=== PATIENT | female | born 1955 | race Caucasian/White ===

== ENCOUNTER 2017-12-25 08:19 | Inpatient (IN) | payer OTHER, SELFPAY ==
[2017-12-12 08:50] VITALS: BMI 33.3
[2017-12-25] VITALS (20 sets, daily range): BP systolic 107–164; BP diastolic 63–86; PULSE 66–91; RESP 8–21; TEMP 35.8–37.1; O2SAT 95–99; BMI 33.3
--- NOTE | 2017-12-25 | DI.RAD.S_ITS ---
PROCEDURE: XR LUMBAR SPINE 2-3V INDICATIONS: XLIF TECHNIQUE: 2 views of the lumbar spine were acquired. COMPARISON: [facility], CR, XR LUMBAR SPINE 2 OR 3 VIEWS, 06/04/2017, 11:44. [facility], MR, L-SPINE WITHOUT CONTRAST, 06/25/2017, 12:02. [facility], CR, XR LUMBAR SPINE 2 OR 3 VIEWS, 11/19/2017, 9:18. FINDINGS: 2 fluoroscopy images demonstrate discectomy and posterior fusion at L3-L4 and L4-L5. IMPRESSION: Discectomy and posterior fusion at L3-L4 and L4-L5. Dictated by: Iftikhar Gomez M.D. on 12/25/2017 at 16:16 Approved by: Iftikhar Gomez M.D. on 12/25/2017 at 16:18
[2017-12-25] MEDS: LACTATED RINGERS 1,000 ML 42 ML IV ×2 (09:14→13:27)
--- NOTE | 2017-12-25 09:53 | PM.PREOP ---
Pre-operative Note Interval Note Pre-op Check: Yes History & Physical Reviewed by Physician and Yes Exam Performed Changes: No
--- NOTE | 2017-12-25 10:00 | PM.OP.1 ---
Operative Date/Time/Diagnoses Date of procedure: 12/25/17 Time of procedure: 15:18 Pre-op diagnosis: lumbar stenosis with radiculopathy Lumbar spondylolisthesis Post-op diagnosis: same Procedure & Clinicians Procedure: L3-4 anterior fusion with cage L3-4 posterior fusion L4-5 TLIF (post/post innerbody fusion) with cage L3, L4, L5 screws Iliac crest bone graft L3-4, L4-5 laminectomy Use of microscope Placement of epidural catheter Same procedure as scheduled: Yes Indications: [age] year old female with intractable pain from stenosis. They had failed conservative management and requested operative intervention. Risks and benefits of surgery were discussed and appropriate consents were obtained. Surgeon: Rishi Slade Channel Development Director: Tanya Espinal Anesthesia Type: General Operative Notes Findings: None Closure Type: primary Specimen(s): none sent Implants & Drains: NuVasive XLIF cages and Reline screws Globus Rise cage Estimated Blood Loss (mL): 30 Procedure in detail: Patient was brought to the operating room and intubated on the table. Time-out was performed. They were then rolled over to the lateral decubitus position with the [id number]. The table was bent and they were taped down in the correct position. X-rays were taken to confirm a true AP and lateral. Preoperative antibiotics were given. The left flank was prepped and draped in standard sterile fashion. Using fluoroscopy, a 3 cm incision was made above the iliac crest. We bluntly dissected down with Metzenbaum scissors and split the 3 abdominal muscle layers. We dissected out the retroperitoneal space and using finger guidance, brought our 1st dilator down to the psoas muscle. Using neuromonitoring and fluoroscopy, we placed it through the psoas onto the L34 disc space in an anterior position and gradually pulled the dilator posteriorly along the disc space. We placed our guidewire and measured our depth for the retractor. We then dilated with the next 2 dilators and then placed our retractor over the dilators. Position was confirmed with fluoroscopy and the retractor was locked down to the bar. We opened up the retractor and checked with neuro monitoring. We then placed the tyree and again checked with neuro monitoring. The retractor was opened further and the ALL retractor was placed. An annulotomy was performed. We then performed a complete diskectomy with ring curette, pituitary, box osteotome. A Khoury was advanced across the disc space under fluoroscopy to release the lateral annulus on the opposite side. We then used sequentially larger trials and confirmed under fluoroscopy. An XLIF cage was packed with Osteocell bone graft and impacted into the L34 disc space with fluoroscopy for the anterior fusion at this level. The wound was irrigated. The retractor was closed down. The tyree was removed. We carefully removed the retractor with direct visualization to make sure there was no neurovascular or abdominal injury. Final x-rays were taken. The muscle fascia was closed, superficial tissue was closed. The skin was closed. Sterile dressing was placed. The patient was then rolled over on the well-padded prone position on the Nomi table. Using fluoroscopy for localization, a 6 cm incision was made to the left of the midline. We used Bovie to split the fascia. We then percutaneously placed Jamshidi needles down the left pedicles of L3, L4, L5 with fluoro and neuro monitoring. We changed out the guidewires. We then tapped and placed our screw shanks. The retractor was opened. The transverse processes were cleared in the gutter as well as along the lamina medially. We used the bur to prep the transverse processes. We then brought in the microscope. A laminectomy was performed at L4-5 and L3-4 with a bur and Kerrison rongeurs. We carefully depressed the dura to reach to the opposite side and decompress the entire central canal. We cleared out the neural foramen. In the end the ball probe could be placed cephalad and caudally across to the opposite side in the foramen and everything was opened. We then completed the facetectomy at L4-5. We carefully retracted the dura at L4-5 and exposed the disc. Bipolar was used for hemostasis. We performed an annulotomy and then used paddles, clarissa, pituitaries, and curettes to perform a complete diskectomy at L4-5. We placed Osteocell bone graft into the disc space and then placed our globus Rise cage. This was expanded under fluoroscopy. This completed the posterior innerbody portion of the L45 TLIF. We then placed the screw heads and then measured and placed a lexy and locked it down. The wound was copiously irrigated. A small stab incision was made over the PSIS and a Jamshidi needle was placed into the iliac crest and several mL of bone marrow was aspirated. This was mixed with our locally harvested bone graft as well as the remaining Osteocell and placed in the posterolateral gutter for posterior fusion at L3-4 and the posterior lateral portion of the L4-5 TLIF. An epidural catheter was primed with 4mL of 0.5% bupivacaine, 100 mcg fentanyl, 4 mg Duramorph, 1 mg Stadol. The dura was depressed under the cephalad lamina with a ball probe and the epidural catheter was gently advanced 6 cm cephalad. The fascia was then closed. The epidural was then injected without resistance. The catheter was pulled and we closed more over the fascia. Then using fluoroscopy, a 6 cm right-sided incision was made. We used Bovie split the fascia. We then percutaneously placed Jamshidi needles, guidewires, tapped, and then placed our pedicle screws into L3, L4, and L5. This was done with neuro monitoring and fluoro. We placed a lexy and locked it down. Final x-rays were taken. The wound was irrigated. The fascia was closed. Vancomycin powder was placed in the wounds. The superficial and skin were closed. Sterile dressing was placed. The patient was then rolled over, extubated, brought to the recovery room with no complications. Complications: none Condition: stable Disposition: PACU Plan for aftercare: Inpatient. Up with physical therapy.
[2017-12-25] MEDS: CEFAZOLIN 2 GM/100 ML FROZ.PIGGY IV ×3 (10:48→22:33)
--- NOTE | 2017-12-25 11:34 | SUR.OPER ---
Right lateral on padded OR table. Head on pillow, gel axillary roll, pillow to support left arm. Legs flexed, pillows between legs, gel pad under down leg and ankle. Multiple passes of 3 inch cloth tape across shoulder, hip, upper and lower legs to secure patient on OR table.
[2017-12-25] MEDS: BUPIVACAINE 0.5% (PF) 4 ML, MORPHINE-PF 4 MG, BUTORPHANOL 1 MG, fentaNYL 100 MCG INJ (12:35)
[2017-12-25] MEDS: THROMBIN (BOVINE) 5,000 UNIT VIAL 5000 UNIT TOP (12:39)
[2017-12-25] MEDS: SODIUM CHLORIDE 0.9% 1,000 ML, GENTAMICIN 80 MG IRR ×2 (12:40→12:57)
[2017-12-25] MEDS: VANCOMYCIN 1,000 MG VIAL 1000 MG TOP (14:45)
--- NOTE | 2017-12-25 15:55 | SUR.PHASEI ---
oxygen decreased to 2l/cannula
[2017-12-25] MEDS: HYDROMORPHONE 2 MG INJ 0.25 MG IV (16:05)
[2017-12-25] MEDS: LACTATED RINGERS 1,000 ML 125 ML IV (17:02)
--- NOTE | 2017-12-25 17:05 | PT.IPTN ---
Current Diagnoses Spondylolisthesis, lumbar region (12/25/17) Spinal stenosis, lumbar region with neurogenic claudication (12/25/17) Surgery Performed Operation Date: 12/25/17 10:45 Actual Procedures p L3-4,L4-5 Laminectomy w/Instru. Front and Back Fusion w/Bone Graft - Rishi Slade MD Physical Therapy Treatment Note M3 PT-IP Subjective Start: 12/25/17 17:02 Freq: NEEDED Status: Active Protocol: Document 12/25/17 17:02 ALFONSO (Rec: 12/25/17 17:05 EA [id number]) Subjective Physical Therapy Visit Type Type Patient Refusal Notes Nurse in-charged reports that patient just got into the floor ~ 1645 and feels not ready at this time due to bot fully awake. Patient to evaluate tomorrow a.m
--- NOTE | 2017-12-25 17:13 | PC.ADMIT ---
Addendum entered by Cari Saldana R.N. 12/25/17 22:49: Pt removed from oxygen, sustaining 98% on room air. Pt pleasant and makes needs known. will continue to monitor. Original Note: Addendum entered by Cari Saldana R.N. 12/25/17 21:53: Pt slept for a few hours, on and off. tolerating pain. no move nausea. ice pack to back. will continue to monitor. Original Note: Addendum entered by Cari Saldana R.N. 12/25/17 19:21: pt remains on 1L NC. pt ate too much she thinks, given meds and pt stated she felt nauseous. t did throw up about 5ml. clear, no pills seen, green from jello pt had just put in her mouth. Pt cooperative. Pt refuses pain medication. tolerable level 5/10 and pt states thats where she feels like she is. pt given zofran and this helped with nausea. Pt belongings and call light within reach. will continue to monitor pt for safety. taught IS use. encouraged to call if pain become intolerable, sooner rather than later. will continue to monitor. Original Note: Addendum entered by Cari Saldana R.N. 12/25/17 18:37: removed oxygen from pt, sustained 98%, upon checking pt 10 minutes later- pt oxygen 90% on room air, encouraged to take deep breaths. Pt put back on 1L oxygen, pt does not like it as she states it tickles her nose. Pt taught how to us IS and demonstration, pt able to teach back. Pt using. oxygen 95-99% on room air with IS use. will continue to monitor. Original Note: ADMISSION TO FLOOR- Pt arrived on floor at 1630. Pt easy to arouse. denies pain. tolerating Ice and water fine. will proceed with juices and jello. vss. on 1-2 l nc sating 97-99 % respectively, will continue to monitor. on continuous pulse ox per order. fluids started .massey patent. dressing sites clean/d/i. will continue to monitor Pt and family arrived and at bedside. they brought pt own walker. Pt not yet out of bed. bed alarm on, side rails upx3 will continue to monitor.
[2017-12-25] MEDS: MONTELUKAST 10 MG TABLET PO (18:46)
[2017-12-25] MEDS: ESTRADIOL 1 MG TABLET PO (18:46)
[2017-12-25] MEDS: CHOLECALCIFEROL (VITAMIN D3) 1,000 UNIT TABLET 2000 UNIT PO (18:49)
[2017-12-25] MEDS: diphenhydrAMINE 25 MG TABLET PO (18:49)
[2017-12-25] MEDS: CALCIUM CARBONATE 600 MG TABLET PO (18:50)
[2017-12-25] MEDS: ONDANSETRON 4 MG/2 ML INJ IV (19:05)
[2017-12-25] MEDS: hydrOXYzine pamoate 25 MG CAPSULE PO (20:31)
[2017-12-25] MEDS: GABAPENTIN 300 MG CAPSULE PO (20:32)
[2017-12-25] MEDS: TRAMADOL 50 MG TABLET PO (20:32)
[2017-12-25] MEDS: ALBUTEROL HFA 60 PUFF/8 GM INH INH (23:47)
[2017-12-26] MEDS: MAG HYDROX/ALUM/SIMETH 30 ML UDC PO (00:05)
[2017-12-26] MEDS: LACTATED RINGERS 1,000 ML 125 ML IV (01:58)
[2017-12-26 04:00] VITALS: BP 142/75; PULSE 87; RESP 18; TEMP 37.1; O2SAT 96
[2017-12-26] MEDS: TRAMADOL 50 MG TABLET PO ×4 (04:05→18:36)
[2017-12-26 06:40] LABS: BUN Creatinine Ratio 17.1 (6-22); Blood Urea Nitrogen 12 mg/dL (7-17); Calcium 8.6 mg/dL (8.4-10.2); Carbon Dioxide 33 mmol/L (22-32); Chloride 101 mmol/L (98-107); Estimated Glomerular Filt Rate > 60.0 mL/min (>60); Glucose 114 mg/dL (80-110); HEMOLYSIS < 15 (0-50); Potassium 4.5 mmol/L (3.4-5.1); Sodium 139 mmol/L (137-145)
[2017-12-26] MEDS: CEFAZOLIN 2 GM/100 ML FROZ.PIGGY IV (06:43)
[2017-12-26 06:44] LABS: Hematocrit 38.3 % (36-46); Hemoglobin 12.9 g/dL (12.0-16.0)
--- NOTE | 2017-12-26 07:34 | P.PN_ITS ---
Subjective Date Patient Seen: 12/26/17 Time Patient Seen: 07:20 Interval history: Post op day 1 status post L3-L5 Lami/Fusion with Dr. Slade. Patient is laying in bed comfortably without any signs of distress. She rates her pain a 2/10. Patient has not started PT. Patient denies fever, chills, chest pain, vomiting or respiratory distress. Overall she is doing well. Exam Vital Signs (past 8 hours): - 12/26/17 04:00 Temperature 98.7 F Pulse Rate 87 Respiratory Rate 18 Blood Pressure 142/75 H Pulse Oximetry 96 Oxygen Delivery Method Nasal Cannula Oxygen Flow Rate 1 Narrative Exam Narrative: Patient is AOx3. She is a well developed woman in no acute distress. Lumbar dressing has mild drainage. Urinary catheter in place. Dorsalis pedis and radial pulses are 2+ and symmetric. Sensation to LE intact with light touch bilaterally. Muscle strength is 5/5 in dorsiflexion, plantarflexion and automobile designer bilaterally. No neurological deficit noted. DVT compression device intact. Calfs are non tender, soft and compressible. Objective Labs Result Diagrams: 12/26/17 05:45 12/26/17 05:45 Labs: Laboratory Results - last 24 hr 12/26/17 12/26/17 05:45 05:45 Hgb 12.9 Hct 38.3 Sodium 139 Potassium 4.5 Chloride 101 Carbon Dioxide 33 H BUN 12 Creatinine 0.70 Estimated GFR > 60.0 BUN/Creatinine Ratio 17.1 Glucose 114 H Calcium 8.6 Assessment & Plan Post-op Postoperative Procedures Operation Date: 12/25/17 10:45 Actual Procedures Side Surgeon p L3-4,L4-5 Laminectomy w/Instru. Front and Back Fusion w/Bone Graft Rishi Slade MD Postoperative day: 1 Postoperative status: doing well Postoperative plan: routine post-op care Postoperative plan narrative: Plan to start mobilizing with PT, sitting in chair and ambulating. Patient is likely to be discharged home in 1-2 days. D/C cath once ambulatory. Time Spent With Patient less than 15 minutes
--- NOTE | 2017-12-26 07:53 | PM.PNPO.1 ---
Subjective Date Patient Seen: 12/26/17 Time Patient Seen: 07:53 Interval history: She is doing great. No leg pain. Pain level 2/10 Exam Vital Signs (past 8 hours): - 12/26/17 04:00 Temperature 98.7 F Pulse Rate 87 Respiratory Rate 18 Blood Pressure 142/75 H Pulse Oximetry 96 Oxygen Delivery Method Nasal Cannula Oxygen Flow Rate 1 Const Orientation: alert and oriented x3 Back/Spine/Pelvis Other: Dressing CDI. 5/5 motor both lower extremities Objective Labs Result Diagrams: 12/26/17 05:45 12/26/17 05:45 Labs: Laboratory Results - last 24 hr 12/26/17 12/26/17 05:45 05:45 Hgb 12.9 Hct 38.3 Sodium 139 Potassium 4.5 Chloride 101 Carbon Dioxide 33 H BUN 12 Creatinine 0.70 Estimated GFR > 60.0 BUN/Creatinine Ratio 17.1 Glucose 114 H Calcium 8.6 Assessment & Plan Post-op Postoperative Procedures Operation Date: 12/25/17 10:45 Actual Procedures Side Surgeon p L3-4,L4-5 Laminectomy w/Instru. Front and Back Fusion w/Bone Graft Rishi Slade MD she is doing great. Mobilize with physical therapy per
[2017-12-26 07:57] VITALS: BP 129/68; PULSE 81; RESP 16; TEMP 37.2; O2SAT 99
[2017-12-26] MEDS: AMLODIPINE 5 MG TABLET PO (08:18)
[2017-12-26] MEDS: DOCUSATE 100 MG CAPSULE PO ×2 (08:18→18:29)
[2017-12-26] MEDS: CHOLECALCIFEROL (VITAMIN D3) 1,000 UNIT TABLET 2000 UNIT PO ×2 (08:18→18:30)
[2017-12-26] MEDS: CALCIUM CARBONATE 600 MG TABLET PO ×2 (08:18→18:31)
[2017-12-26] MEDS: POTASSIUM CHLORIDE 20 MEQ TAB PO (08:19)
[2017-12-26] MEDS: LORATADINE 10 MG TABLET PO (08:41)
--- NOTE | 2017-12-26 09:14 | PT.IIE ---
Current Diagnoses Spondylolisthesis, lumbar region (12/25/17) Spinal stenosis, lumbar region with neurogenic claudication (12/25/17) Surgery Performed Operation Date: 12/25/17 10:45 Actual Procedures p L3-4,L4-5 Laminectomy w/Instru. Front and Back Fusion w/Bone Graft - Rishi Slade MD Surgical History (Last Updated 12/12/17 @ 09:43 by Shari Porter, RN) History of arthroplasty of left knee (Acute) History of dental surgery (Acute) Hx of LASIK (Acute) Hx of oral surgery (Acute) Hx of sinus surgery (Acute) Hx of tonsillectomy (Acute) Medical History (Last Updated 12/12/17 @ 09:30 by Shari Porter RN) Acid reflux (Acute) Adjustment disorder with depressed mood (Acute) Adjustment disorder with disturbance of conduct (Acute) Arthritis (Acute) Asthma (Acute) Chronic sinusitis (Acute) Dyslipidemia (Acute) Edema (Acute) External hemorrhoids (Acute) Fibromyalgia (Acute) Gout (Acute) HTN (hypertension) (Acute) Herpes simplex (Acute) History of hysterectomy (Acute) Hypokalemia (Acute) Iatrogenic Aida's disease (Acute) Insomnia (Acute) Migraine headache (Acute) Neurogenic claudication (Acute) Numbness (Acute) Osteoarthritis (Acute) Osteopenia (Acute) Osteoporosis (Acute) RLS (restless legs syndrome) (Acute) Physical Therapy Inpatient Evaluation/Re-Eval M1 PT/OT-IP Prior Functional Status Start: 12/25/17 17:02 Freq: NEEDED Status: Active Protocol: Document 12/26/17 08:47 ALFONSO (Rec: 12/26/17 09:14 ALFONSO [id number]) Medical Review Prior Functional Status Medical History Reviewed Yes Diet/Fluid Consistency Regular Communication Normal Mobility and Gait Independent without AD with ability to amb more than 2 blocks. Activities of Daily Living and IADL's Indep. 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 Social History Household Members spouse Living Arrangements House Number of Floors (Floors) One Floor Number of Stairs To Enter/Railing? 2 steps Home Environment High Toilet Home Equipment Front Wheel Walker Straight Cane Employment Status Retired Additional Social History Comment Lives with spouse M2 PT-IP Current Condition Start: 12/25/17 17:02 Freq: NEEDED Status: Active Protocol: Document 12/26/17 08:47 EA (Rec: 12/26/17 09:14 EA [id number]) Physical Therapy Current Condition Current Condition Evaluation Date 12/26/17 Treatment Diagnosis S/P 12/25/17 L3-L5 TLIF, decreased activity tolerance Onset Date 12/25/2017 Precautions Lumbar Precautions Log Roll No Twisting Limit Bending Lifting Restriction of 10 lbs Gait Belt above Incisional Area Weight Bearing Status Weight Bearing Status Weight Bear as Tolerated M3 PT-IP Subjective Start: 12/25/17 17:02 Freq: NEEDED Status: Active Protocol: Document 12/26/17 08:47 EA (Rec: 12/26/17 09:14 EA [id number]) Subjective Physical Therapy Visit Type Type Initial Evaluation Visit Start Time 08:00 Visit Stop Time 08:45 Total Visit Minutes 45 Physical Therapy Visit Comments Patient Comments Patient wants to mobilize and sit to chair for breakfast Short Term Goals Patient wnats to be independent in all transfera and mobility \prior to discharge Therapy Pain Assessment Pain When Pain Assessed At Rest Pain Present Pain Present Pain Reported Location Bilateral Leg Scale Used Numeric (1 - 10) Description Acute Pain Behaviors Wincing Pain Management Techniques Timing of Activity with Medications M4 PT-IP Mobility and Gait Start: 12/25/17 17:02 Freq: NEEDED Status: Active Protocol: Document 12/26/17 08:47 EA (Rec: 12/26/17 09:14 EA [id number]) PT-Bed Mobility Assessment Rolling Type of Rolling Log Rolling Supine to Sit Supine to Sit Minimal Assistance Sit to Supine Sit to Supine Minimal Assistance Scooting Scooting to Edge of Bed Contact Guard Assistance PT-Transfer Assessment Sit to and From Stand Sit to and from Stand Standby Assistance Equipment Transfer Assistive Device Gait Belt Front Wheeled Walker Transfers Transfer Destination Bed Chair Toilet Transfer Technique Stepping Transfer Ability Level of Assist Contact Guard Assistance Comments Mobility Comments Patient exhibit slow candence with decreased standing tolerance. Gait Assessment Gait Gait Assistance Required: Contact Guard Assist Distance (Feet) (feet) 15 Able to Maintain Weight Bearing Status Yes During Gait Assistive Devices Assistive Device Gait Belt Front Wheeled Walker Gait Deviations General Gait Pattern Decreased Stride Length Factors Limiting Gait Function Factors Limiting Gait Function Decreased Activity Tolerance Pain Comments Gait Comments Patient exhibit slow candence with decreased standing tolerance. PT-Balance Assessment Sitting Balance and Reactions Static Sitting Balance Ability Good Dynamic Sitting Balance Ability Fair Standing Balance and Reactions Static Standing Balance Ability Good Dynamic Standing Balance Ability Fair Comments Other Balance Tests/Deviations/Treatment Spontaneous assessment : performed during activity as required test for balance is not permissible at this time due to back pre-cautions. M5 PT-IP Objective Assessments Start: 12/25/17 17:02 Freq: NEEDED Status: Active Protocol: Document 12/26/17 08:47 EA (Rec: 12/26/17 09:14 EA [id number]) Orientation Orientation/Cognition Level of Alertness Alert Orientation Month Year Day of Week Place Language Function Ability No Deficits Noted Safety Awareness Understands Safety Issues Memory Description No Deficits Noted Gross Range of Motion Upper Extremity ROM Assessment Within Functional Limits Lower Extremity ROM Assessment Within Functional Limits Strength Upper Extremity Strength Assessment Within Functional Limits Lower Extremity Strength Assessment Within Functional Limits Comments Strength Comments MMT on both UE/LE's reveals WFL. Myotome to bilat L1- S1 reveals WFL Coordination Assessment Gross Coordination Gross Coordination WNL Assessment Finger to Nose Test Normal Performance Pronation/Supination Test Normal Performance Foot Tapping Test Normal Performance Heel on Ellis Test Normal Performance Sensation Assessment Sensation Gross Sensation WNL Comments Sensation Comments NO deficits noted in all sensory M6 PT-IP Treatment Start: 12/25/17 17:02 Freq: NEEDED Status: Active Protocol: Document 12/26/17 08:47 EA (Rec: 12/26/17 09:14 EA [id number]) Physical Therapy Treatment Education Education Provided Precautions Weight Bearing Status Post-Op Packet Safety M7 PT-IP Assessment and Plan Start: 12/25/17 17:02 Freq: NEEDED Status: Active Protocol: Document 12/26/17 08:47 EA (Rec: 12/26/17 09:14 EA [id number]) PT Summary Assessment and Plan Potential Rehabilitation Potential Excellent Status of Condition at Evaluation Stable Summary Impairments Pain Balance Bed Mobility Transfers Gait Assessment Summary Pleasant 62 y/o F patient demonstrates difficulty with bed mobility and gait with decreased activity tolerance. Objective measurement reveals WFL in MMT and sensory to BUE/ LE, dynamic sitting and standing balance and tolerance exhibits fair result. At this time, patient requires assistance for safety. Patient exhibits good potential for recovery and likely will reach functional indep prior to discharge. Goals Bed Mobility Goal Independent Transfer Goal Independent Gait Goal Independent Gait Distance 100 ft Days to Meet Goals 1 Frequency of Treatment Frequency Of Treatment Twice a Day Treatment Plan Physical Therapy Treatment Plan Bed Mobility Training Transfer Training Gait Training Therapeutic Exercise Post Op Education Discharge Planning Other Recommendations and Next Treatment Bed mobility, transfer, Focus distance mobility, stairs Recommendations To Nursing Amount of Assist Needed 1 Person Assist Discharge Recommendations PT Discharge Recommendations Home with Assistance
[2017-12-26 12:00] VITALS: BP 140/74; PULSE 90; RESP 16; TEMP 37.2; O2SAT 97
[2017-12-26] MEDS: ALBUTEROL HFA 60 PUFF/8 GM INH INH ×2 (12:53→21:03)
--- NOTE | 2017-12-26 14:35 | PT.IPTN ---
Current Diagnoses Spondylolisthesis, lumbar region (12/25/17) Spinal stenosis, lumbar region with neurogenic claudication (12/25/17) Surgery Performed Operation Date: 12/25/17 10:45 Actual Procedures p L3-4,L4-5 Laminectomy w/Instru. Front and Back Fusion w/Bone Graft - Rishi Slade MD Physical Therapy Treatment Note M2 PT-IP Current Condition Start: 12/25/17 17:02 Freq: NEEDED Status: Active Protocol: Document 12/26/17 08:47 EA (Rec: 12/26/17 09:14 EA [id number]) Physical Therapy Current Condition Current Condition Evaluation Date 12/26/17 Treatment Diagnosis S/P 12/25/17 L3-L5 TLIF, decreased activity tolerance Onset Date 12/25/2017 Precautions Lumbar Precautions Log Roll No Twisting Limit Bending Lifting Restriction of 10 lbs Gait Belt above Incisional Area Weight Bearing Status Weight Bearing Status Weight Bear as Tolerated M3 PT-IP Subjective Start: 12/25/17 17:02 Freq: NEEDED Status: Active Protocol: Document 12/26/17 15:34 AB (Rec: 12/26/17 15:45 AB [id number]) Subjective Physical Therapy Visit Type Type Treatment Note Visit Start Time 14:35 Visit Stop Time 15:17 Total Visit Minutes 42 Number of MAIL ORDER CLERK Visits 0 Physical Therapy Visit Comments Patient Comments pt agreeable to do therapy. S .O. present for caregiver training Therapy Pain Assessment Pain When Pain Assessed At Rest Pain Present Pain Present Pain Reported Location Bilateral Leg Intensity 4 Scale Used Numeric (1 - 10) Pain Management Techniques Re-positioning Timing of Activity with Medications M4 PT-IP Mobility and Gait Start: 12/25/17 17:02 Freq: NEEDED Status: Active Protocol: Document 12/26/17 15:34 AB (Rec: 12/26/17 15:45 AB [id number]) PT-Bed Mobility Assessment Rolling Type of Rolling Log Rolling Level of Assist Contact Guard Assistance Supine to Sit Supine to Sit Standby Assistance Contact Guard Assistance Sit to Supine Sit to Supine Standby Assistance Minimal Assistance Scooting Scooting to Edge of Bed Standby Assistance PT-Transfer Assessment Sit to and From Stand Sit to and from Stand Contact Guard Assistance Minimal Assistance Equipment Transfer Assistive Device Gait Belt Front Wheeled Walker Orthotic/Prosthetic Devices or Brace: No Comments Mobility Comments caregiver training conducted. educated pt's significant other on how to use safety belt, assist pt with bed mobility, transfers and ambulation. Bed mobility training conducted: Sit to supine x 4reps: pt initially requiring min A for sit to supine to elevate LE up in bed but was able to complete with SBA after a few reps. supine to sit x 3 reps: pt initially requiring min A but able to complete with SBA after a few reps with occasional cues. Pt completed sit<>stand x 4 reps SBA to CGA with cues for techniques. Pt's S.O. was able to assist pt safely with bed mobility and transfers. Gait Assessment Gait Gait Assistance Required: Contact Guard Assist Distance (Feet) (feet) 50 Able to Maintain Weight Bearing Status Yes During Gait Assistive Devices Assistive Device Gait Belt Front Wheeled Walker Orthotic/Prosthetic Devices or Brace: No Gait Deviations General Gait Pattern Antalgic Factors Limiting Gait Function Factors Limiting Gait Function Decreased Activity Tolerance Decreased Strength Pain Poor Balance Comments Gait Comments S.O was able to assist pt with ambulation using FWW safely. Stair Climbing Assessment Evaluation Level of Assist On Stairs Minimal Assistance Devices Stair Climbing Assistive Devices Small Base Quad Cane Technique/Endurance Stair Climbing Direction Ascend and Descend Stair Climbing Technique Step to Step Number of Steps Climbed 3 Query Text: Stair Climbing Set # Repetitions (reps) 2 Comments Stair Climbing Comments pt completed up/down steps with PT and completed requiring min A and cues using SBQC. pt completed stairs again with S.O. assisting pt and completed safely. M5 PT-IP Objective Assessments Start: 12/25/17 17:02 Freq: NEEDED Status: Active Protocol: Document 12/26/17 08:47 ALFONSO (Rec: 12/26/17 09:14 EA [id number]) Orientation Orientation/Cognition Level of Alertness Alert Orientation Month Year Day of Week Place Language Function Ability No Deficits Noted Safety Awareness Understands Safety Issues Memory Description No Deficits Noted Gross Range of Motion Upper Extremity ROM Assessment Within Functional Limits Lower Extremity ROM Assessment Within Functional Limits Strength Upper Extremity Strength Assessment Within Functional Limits Lower Extremity Strength Assessment Within Functional Limits Comments Strength Comments MMT on both UE/LE's reveals WFL. Myotome to bilat L1- S1 reveals WFL Coordination Assessment Gross Coordination Gross Coordination WNL Assessment Finger to Nose Test Normal Performance Pronation/Supination Test Normal Performance Foot Tapping Test Normal Performance Heel on Ellis Test Normal Performance Sensation Assessment Sensation Gross Sensation WNL Comments Sensation Comments NO deficits noted in all sensory M6 PT-IP Treatment Start: 12/25/17 17:02 Freq: NEEDED Status: Active Protocol: Document 12/26/17 15:34 AB (Rec: 12/26/17 15:45 AB [id number]) Physical Therapy Treatment Education Education Provided Precautions Safety M7 PT-IP Assessment and Plan Start: 12/25/17 17:02 Freq: NEEDED Status: Active Protocol: Document 12/26/17 15:34 AB (Rec: 12/26/17 15:45 AB [id number]) PT Summary Assessment and Plan Potential Rehabilitation Potential Good Summary Impairments Pain ROM Strength Balance Sensation Cognition Bed Mobility Transfers Gait Activity Tolerance Progress Towards Goals Progressing Toward Goals Assessment Summary pt requiring one person assist with mobility. caregiver juan luis conducted and S.O. was able to assist pt safely. pt may go home when medically stable. Goals Bed Mobility Goal Independent Transfer Goal Independent Gait Goal Independent Gait Distance 100 ft Days to Meet Goals 1 Frequency of Treatment Frequency Of Treatment Twice a Day Treatment Plan Physical Therapy Treatment Plan Bed Mobility Training Transfer Training Gait Training Therapeutic Exercise Post Op Education Discharge Planning Other Recommendations and Next Treatment Bed mobility, transfer, Focus distance mobility, stairs Recommendations To Nursing Amount of Assist Needed 1 Person Assist Discharge Recommendations PT Discharge Recommendations Home with Assistance
--- NOTE | 2017-12-26 14:36 | OT.IP.EVAL ---
Current Diagnoses Spondylolisthesis, lumbar region (12/25/17) Spinal stenosis, lumbar region with neurogenic claudication (12/25/17) Surgery Performed Operation Date: 12/25/17 10:45 Actual Procedures p L3-4,L4-5 Laminectomy w/Instru. Front and Back Fusion w/Bone Graft - Rishi Slade MD Past Medical History (Last Updated 12/12/17 @ 09:30 by Shari Porter, RN) Acid reflux (Acute) Adjustment disorder with depressed mood (Acute) Adjustment disorder with disturbance of conduct (Acute) Arthritis (Acute) Asthma (Acute) Chronic sinusitis (Acute) Dyslipidemia (Acute) Edema (Acute) External hemorrhoids (Acute) Fibromyalgia (Acute) Gout (Acute) HTN (hypertension) (Acute) Herpes simplex (Acute) History of hysterectomy (Acute) Hypokalemia (Acute) Iatrogenic [place]'s disease (Acute) Insomnia (Acute) Migraine headache (Acute) Neurogenic claudication (Acute) Numbness (Acute) Osteoarthritis (Acute) Osteopenia (Acute) Osteoporosis (Acute) RLS (restless legs syndrome) (Acute) Surgical History (Last Updated 12/12/17 @ 09:43 by Shari Porter RN) History of arthroplasty of left knee (Acute) History of dental surgery (Acute) Hx of LASIK (Acute) Hx of oral surgery (Acute) Hx of sinus surgery (Acute) Hx of tonsillectomy (Acute) Occupational Therapy Inpatient Evaluation/Re-Eval M1 PT/OT-IP Prior Functional Status Start: 12/25/17 17:02 Freq: NEEDED Status: Active Protocol: Document 12/26/17 08:47 ALFONSO (Rec: 12/26/17 09:14 ALFONSO [id number]) Medical Review Prior Functional Status Medical History Reviewed Yes Diet/Fluid Consistency Regular Communication Normal Mobility and Gait Independent without AD with ability to amb more than 2 blocks. Activities of Daily Living and IADL's Indep. 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 Social History Household Members spouse Living Arrangements House Number of Floors (Floors) One Floor Number of Stairs To Enter/Railing? 2 steps Home Environment High Toilet Home Equipment Front Wheel Walker Straight Cane Employment Status Retired Additional Social History Comment Lives with spouse M1 PT/OT-IP Prior Functional Status Start: 12/26/17 14:22 Freq: NEEDED Status: Active Protocol: Document 12/26/17 14:22 [facility] (Rec: 12/26/17 14:36 [facility] [id number]) Medical Review Prior Functional Status Medical History Reviewed Yes Diet/Fluid Consistency Regular Communication Normal Mobility and Gait Independent without AD with ability to amb more than 2 blocks. Activities of Daily Living and IADL's Indep. 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 Social History Household Members spouse Living Arrangements House Number of Floors (Floors) One Floor Number of Stairs To Enter/Railing? 2 steps no rail Home Environment High Toilet Home Equipment Front Wheel Walker Straight Cane Tub Transfer Rad Tech Held Shower Employment Status Retired Additional Social History Comment Lives with spouse M2 OT-IP Current Condition Start: 12/26/17 14:22 Freq: Status: Active Protocol: Document 12/26/17 14:22 [facility] (Rec: 12/26/17 14:36 [facility] [id number]) Occupational Therapy Current Condition Current Condition Evaluation Date 12/26/17 Treatment Diagnosis Lumbar stenosis Diagnosis Onset Date 12/25/17 Post Operative Precautions Lumbar Precautions Log Roll No Twisting Limit Bending Lifting Restriction of 10 lbs Gait Belt above Incisional Area Weight Bearing Status Weight Bearing Status Weight Bear as Tolerated M3 OT- IP Subjective and Pain Start: 12/26/17 14:22 Freq: Status: Active Protocol: Document 12/26/17 14:22 [facility] (Rec: 12/26/17 14:36 [facility] [id number]) OT- Subjective Occupational Therapy Visit Type Type Initial Evaluation Visit Start Time 13:45 Visit Stop Time 14:20 Total Visit Minutes 35 Occupational Therapy Visit Comments Patient Comments Pt wanting to take a shower. OT Pain Assessment Pain When Pain Assessed At Rest Pain Present Pain Present Denied Pain M4 OT- IP ADL's Start: 12/26/17 14:22 Freq: Status: Active Protocol: Document 12/26/17 14:22 [facility] (Rec: 12/26/17 14:36 [facility] [id number]) OT ADL-Dressing General Eval Upper Body Dressing Ability Independent Lower Body Dressing Ability Minimal Assistance Areas Needing Assistance Pants/Shorts Socks Assistive Devices Dressing Assistive Devices Biomedical Instrument Technician Sock Aid Comments OT Dressing Comments Having to assist pt to get pant leg untangled over her feet. Pt able to show good safety for use of AED for LB dressing needs. OT ADL-Toileting Comments OT Toileting Comments Educated pt to stand from pericare needs. OT ADL-Bathing Bathing Type Bathing Type Shower General Evaluation Bathing Ability Minimal Assistance Areas Needing Assistance Wash/Dry Back Wash/Dry Lower Extremities Devices Bathing Equipment Shower Chair with Arms Comments OT Bathing Comments Pt has tub bench, HHSP, and spouse to assist at home. M6 OT- IP Functional Cognition Start: 12/26/17 14:22 Freq: Status: Active Protocol: Document 12/26/17 14:22 [facility] (Rec: 12/26/17 14:36 [facility] [id number]) Cognitive Factors Limiting Selfcare Function Cognitive Ability Level of Alertness Alert Patient Orientation Name Age Birthday Month Date Year Day of Week Place Situation Attention Span Ability Capable of Focused Attention Capable of Sustained Attention Ability to Follow Commands Able to Follow Multi-Step Commands Memory Description No Deficits Noted Safety Awareness Underestimates Need for Assistance Problem Solving Ability Needs Assist to Identify Solutions Cognitive Comments Cognitive Assessment Comments Pt a bit impulsive and vc to slow down and take reast breaks. OT- Vision and Hearing OT- Hearing Assessment OT- Hearing Assessment WFL M7 OT- IP Mobility and Balance Start: 12/26/17 14:22 Freq: Status: Active Protocol: Document 12/26/17 14:22 [facility] (Rec: 12/26/17 14:36 [facility] [id number]) OT-Transfer Assessment Sit to and From Stand Sit to and from Stand Standby Assistance Contact Guard Assistance Transfers Transfer Ability Standby Assistance Contact Guard Assistance Technique Transfer Destination Chair Shower Stall Transfer Technique Stand Step Pivot Devices Transfer Assistive Devices Gait Belt Front Wheeled Walker Comments Mobility Comments CGA while walking over the threshold of the shower. OT- Balance Assessment Sitting Balance and Reactions Static Sitting Balance Ability Normal Dynamic Sitting Balance Ability Normal Standing Balance and Reactions Static Standing Balance Ability Good Dynamic Standing Balance Ability Fair M8 OT- IP Objective Assessments Start: 12/26/17 14:22 Freq: Status: Active Protocol: Document 12/26/17 14:22 [facility] (Rec: 12/26/17 14:36 [facility] [id number]) OT Gross Range of Motion Upper Extremity Range of Motion Assessment Within Functional Limits OT Strength Upper Extremity Strength Assessment Within Functional Limits OT-Muscle Tone Assessment Muscle Tone WNL Yes M9 OT- IP Assessment and Plan Start: 12/26/17 14:22 Freq: Status: Active Protocol: Document 12/26/17 14:22 [facility] (Rec: 12/26/17 14:36 [facility] [id number]) OT Summary Assessment and Plan Potential Rehabilitation Potential Excellent Analytic Complexity at Evaluation Low Summary OT Impairments Balance Functional Mobility Dressing Bathing Progress Towards Goals Progressing Toward Goals Assessment Summary Pt Low complexity main barrier is steps, dynamic balance, and activity tolerance. Pt has good supportive spouse and looking to go home when medically stable. Goals Dressing Goal Standby Assistance Toileting Goal Independent Bathing Goal Standby Assistance Toilet Transfer Goal Independent Patient/Caregiver Education Goal Caregiver Independent Assisting Patient Days to Meet Goals 2 Frequency of Treatment Frequency Of Treatment Once a Day Treatment Plan OT Treatment Plan ADL Training Functional Mobility Patient/Family Education Discharge Planning Other Treatment Recommendations and Next Family training Treatment Focus Discharge Recommendations OT Discharge Recommendations Home with Assistance
--- NOTE | 2017-12-26 15:33 | CM.IDA ---
Discharge Planning/Care Management CM Discharge Assessment Start: 12/26/17 15:26 Freq: Status: Active Protocol: Document 12/26/17 15:27 JEROMY (Rec: 12/26/17 15:33 JEROMY [id number]) Discharge Planning Assessment Assigned Brass Plater SEBASTIAN Choi DPOA/Assigned Designee Name Renee Padilla, spouse Contact Information [phone] Advance Directives? 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 Yes Caregiver for Another No Barriers to Discharge No Comment PT/OT expects pt will be able to return home w/supportive spouse upon DC Discharge Plan Home Transportation Arrangement Family Referrals Initiated None needed Additional Comment FIREARMS INSPECTOR available if needs or concerns arise. Whiteboard Updated in Patient Room with Yes name and ext. # of Brass Plater Review Status In Process Please Provide Date Initial DC 12/26/17 Assessment Was Performed
[2017-12-26 15:35] VITALS: BP 164/77; PULSE 87; RESP 20; TEMP 37; O2SAT 96
--- NOTE | 2017-12-26 18:20 | PC.NURSE ---
Addendum entered by Margret Galeano R.N. 12/26/17 21:48: Pt resting quietly at this time. Assisted to BR w/o incidence. Relatively uneventful evening. Call light w/in reach, bed alarm on for pt safety. Continue w/plan of care. Original Note: Addendum entered by Margret Galeano R.N. 12/26/17 18:41: Pt med at this time w/tramadol for 4/10 discomfort. Original Note: Pt resting quietly at this time. Denies discomfort. Assisted to BR w/o incidence. HL left wrist intact/patent. Dsgs CDI. Stable post op course. Call light w/in reach.
[2017-12-26] MEDS: ESTRADIOL 1 MG TABLET PO (18:28)
[2017-12-26] MEDS: MONTELUKAST 10 MG TABLET PO (18:29)
[2017-12-26] MEDS: SENNOSIDES 8.6 MG TABLET 17.2 MG PO (18:32)
[2017-12-26] MEDS: GABAPENTIN 300 MG CAPSULE PO (20:53)
[2017-12-26 20:55] VITALS: BP 142/65; PULSE 79; RESP 20; TEMP 37.2; O2SAT 94
[2017-12-26 23:45] VITALS: BP 151/75; PULSE 84; RESP 18; TEMP 37.1; O2SAT 95
[2017-12-27] MEDS: ALBUTEROL HFA 60 PUFF/8 GM INH INH ×2 (00:46→08:07)
[2017-12-27] MEDS: ONDANSETRON 4 MG/2 ML INJ IV (01:00)
[2017-12-27] MEDS: SODIUM CHLORIDE 0.9% FLUSH 10 ML IV (01:01)
[2017-12-27] MEDS: TRAMADOL 50 MG TABLET PO ×2 (01:05→06:16)
--- NOTE | 2017-12-27 01:21 | PC.NURSE ---
Addendum entered by Michelle Marr R.N. 12/27/17 06:38: Medicated with Tramadol this morning for pain in lower back but declined need for antiemetic. Slept at intervals. Original Note: Patient is alert and oriented. Breath sounds CTA with RA sat of 95%. HRR. Admits to nausea associated with pain; medicated with Zofran. BT present and abdomen is soft; passing flatus. Denies dysuria, frequency, urgency or incontinence but states she has chronic problems emptying bladder and has to push urine out. Dressing to back/left hip are CDI. Does complain of 4/10 pain so medicated with Tramadol. Ambulated in bush with walker and 1 assist; states she still feels weak. CMS is intact but does state she has numbness in left groin extending into suprapubic/LLQ abdomen since surgery; states she told MD about the new numbness. Able to turn self in bed. Refusing SCD's so reminded to ankle wave. Fall risk score is high and bed alarm is being used.
[2017-12-27 03:55] VITALS: BP 130/75; PULSE 84; RESP 18; TEMP 37.4; O2SAT 93
[2017-12-27 07:45] VITALS: BP 124/53; PULSE 79; RESP 17; TEMP 36.6; O2SAT 95
[2017-12-27] MEDS: DOCUSATE 100 MG CAPSULE PO (08:10)
[2017-12-27] MEDS: CHOLECALCIFEROL (VITAMIN D3) 1,000 UNIT TABLET 2000 UNIT PO (08:10)
[2017-12-27] MEDS: CALCIUM CARBONATE 600 MG TABLET PO (08:10)
[2017-12-27] MEDS: LORATADINE 10 MG TABLET PO (08:10)
[2017-12-27] MEDS: AMLODIPINE 5 MG TABLET PO (08:10)
[2017-12-27] MEDS: POTASSIUM CHLORIDE 20 MEQ TAB PO (08:10)
--- NOTE | 2017-12-27 08:36 | P.DS_ITS ---
History of Present Illness Date Patient Seen: 12/27/17 Time Patient Seen: 08:31 Chief complaint: L3-5 laminectomy instrumented front/back fusion Narrative: Hospital day 3, postop day 2 following L3-4 XL IF, L4-[address] Slade. Patient doing well at this time. Has been up and ambulating with physical therapy. Has done stairs. Does note some at radicular pain into the left groin area but no other leg symptoms. Pain controlled well with tramadol. Discharge Providers Date of admission: 12/25/17 08:19 Primary care physician: Christine Rosario DO Consults: 12/25/17 16:46 Consult to Occupational Therapy Evaluate & Treat Comment: Physician Instructions: Evaluate and treat Consult to Physical Therapy Evaluate & Treat Comment: Physician Instructions: Evaluate and Treat Consult to Respiratory Therapy Evaluate & Treat Comment: Physician Instructions: Evaluate and treat Discharge provider: Chaim Mckenzie PA-C Summary Discharge Diagnosis: Status post L3-4 XLIF, L4-5 TLIF Hospital Course: Patient brought to hospital on 12/25/2017 for above noted surgery. She remained stable postoperatively. Gradual improvement in ambulation. Pain well controlled. Ready for discharge home on postop day 2. Status at Discharge Cognitive/behavioral status at discharge: Alert, oriented no acute distress. Functional status at discharge: uses cane/walker Overall status at discharge: patient is progressing back to baseline Time Spent with Patient Less than 30 minutes Exam Vital Signs (past 8 hours): - 12/27/17 03:55 12/27/17 07:45 Temperature 99.4 F 97.9 F Pulse Rate 84 79 Respiratory Rate 18 17 Blood Pressure 130/75 124/53 L Pulse Oximetry 93 95 Oxygen Delivery Method Room Air Oxygen Flow Rate 0 Narrative Exam Narrative: Back. CovRsite dressing is dry to lumbar area without drainage or inflammation. Legs. SLR from sitting position to 90? bilateral without radicular or low back pain. No calf pain or swelling. Pulses and sensation to lower legs symmetrical. Objective Labs Result Diagrams: 12/26/17 05:45 12/26/17 05:45 Discharge Plan Discharge Plan Patient Disposition: Home Discharge comment: Patient to avoid excessive bending or twisting of lumbar spine. No lifting or carrying more than 5-10 lb. Keep dressing dry as much as possible. Discharge Med Rec/Prescriptions Prescriptions: New tramadol 50 mg Tablet 50 mg PO Q4HR PRN (Reason: Pain, Moderate (4-6)) Qty: 30 RF: 0 gabapentin [Neurontin] 300 mg Capsule 300 mg PO BEDTIME Qty: 30 RF: 0 hydroxyzine pamoate 25 mg Capsule 25 mg PO Q4HR PRN (Reason: Nausea And Vomiting) Qty: 30 RF: 0 Continue albuterol sulfate 0.63 MG/3 ML solution for nebulization 0.63 mg INH Q4HP PRN (Reason: Asthma) Qty: 30 RF: 0 aspirin 650 mg Tablet,Delayed Release (Dr/Ec) 650 mg PO BID RF: 0 albuterol sulfate [Ventolin HFA] 90 MCG/PUFF HFA aerosol inhaler 1 puff INH Q4HP PRN (Reason: Asthma) RF: 0 fexofenadine [Ariana Allergy] 180 mg Tablet 180 mg PO DAILY RF: 0 amlodipine 5 mg Tablet 5 mg PO DAILY RF: 0 calcium carbonate [Calcium 600] 600 mg calcium (1,500 mg) Tablet 600 mg PO BID RF: 0 estradiol [Estrace] 1 mg Tablet 1 mg PO QPM RF: 0 lidocaine 5 % Adhesive Patch,Medicated 1 patch TOPICAL DAILY RF: 0 montelukast 10 mg Tablet 10 mg PO QPM RF: 0 azelastine 137 mcg (0.1 %) Aerosol,[place] 2 spray INTRANASAL BID RF: 0 fluticasone-salmeterol [Advair HFA] 230-21 mcg/actuation Hfa Aerosol Inhaler 2 puff INHALATION BID RF: 0 cholecalciferol (vitamin D3) [Vitamin D3] 2,000 unit Tablet 2,000 unit PO BID RF: 0 potassium chloride 20 mEq Tablet Extended Release 20 meq PO DAILY RF: 0 Pulmicort 1 dose Inhalation DIRECTED RF: 0 Provider Discharge Instructions Diet: Diet as Tolerated Skin/Wound/Dressing Care Report to your healthcare provider any signs of infection, such as:: chills, fever, night sweats, increased pain and unusual drainage Dressing: Keep the dressing clean and dry as much as possible. Discharge Data Primary Care Provider: Christine Rosario Attending Provider: Rishi Slade Admit Date/Time: 12/25/17 08:19
--- NOTE | 2017-12-27 09:26 | PT.IPTN ---
Current Diagnoses Spondylolisthesis, lumbar region (12/25/17) Spinal stenosis, lumbar region with neurogenic claudication (12/25/17) Surgery Performed Operation Date: 12/25/17 10:45 Actual Procedures p L3-4,L4-5 Laminectomy w/Instru. Front and Back Fusion w/Bone Graft - Rishi Slade MD Physical Therapy Treatment Note M2 PT-IP Current Condition Start: 12/25/17 17:02 Freq: NEEDED Status: Active Protocol: Document 12/26/17 08:47 EA (Rec: 12/26/17 09:14 EA [id number]) Physical Therapy Current Condition Current Condition Evaluation Date 12/26/17 Treatment Diagnosis S/P 12/25/17 L3-L5 TLIF, decreased activity tolerance Onset Date 12/25/2017 Precautions Lumbar Precautions Log Roll No Twisting Limit Bending Lifting Restriction of 10 lbs Gait Belt above Incisional Area Weight Bearing Status Weight Bearing Status Weight Bear as Tolerated M3 PT-IP Subjective Start: 12/25/17 17:02 Freq: NEEDED Status: Active Protocol: Document 12/27/17 09:22 GGD (Rec: 12/27/17 09:26 GGD [id number]) Subjective Physical Therapy Visit Type Type Treatment Note Visit Start Time 08:55 Visit Stop Time 09:20 Total Visit Minutes 25 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 Therapy Pain Assessment Pain When Pain Assessed At Rest Pain Present Pain Present Pain Reported M4 PT-IP Mobility and Gait Start: 12/25/17 17:02 Freq: NEEDED Status: Active Protocol: Document 12/27/17 09:22 GGD (Rec: 12/27/17 09:26 GGD [id number]) PT-Bed Mobility Assessment Rolling Type of Rolling Log Rolling Level of Assist Standby Assistance Sit to Supine Sit to Supine Standby Assistance Scooting Scooting to Edge of Bed Standby Assistance PT-Transfer Assessment Sit to and From Stand Sit to and from Stand Contact Guard Assistance Use of Upper Extremities Equipment Transfer Assistive Device Gait Belt Front Wheeled Walker Orthotic/Prosthetic Devices or Brace: No Gait Assessment Gait Gait Assistance Required: Contact Guard Assist Distance (Feet) (feet) 250 Able to Maintain Weight Bearing Status Yes During Gait Assistive Devices Assistive Device Gait Belt Front Wheeled Walker Gait Deviations General Gait Pattern Antalgic Factors Limiting Gait Function Factors Limiting Gait Function Decreased Activity Tolerance Decreased Strength Pain Stair Climbing Assessment Evaluation Level of Assist On Stairs Contact Guard Assistance Devices Stair Climbing Assistive Devices Small Base Quad Cane Technique/Endurance Stair Climbing Direction Ascend and Descend Stair Climbing Technique Step to Step Number of Steps Climbed 3 Query Text: Stair Climbing Set # Repetitions (reps) 1 M5 PT-IP Objective Assessments Start: 12/25/17 17:02 Freq: NEEDED Status: Active Protocol: Document 12/26/17 08:47 EA (Rec: 12/26/17 09:14 EA [id number]) Orientation Orientation/Cognition Level of Alertness Alert Orientation Month Year Day of Week Place Language Function Ability No Deficits Noted Safety Awareness Understands Safety Issues Memory Description No Deficits Noted Gross Range of Motion Upper Extremity ROM Assessment Within Functional Limits Lower Extremity ROM Assessment Within Functional Limits Strength Upper Extremity Strength Assessment Within Functional Limits Lower Extremity Strength Assessment Within Functional Limits Comments Strength Comments MMT on both UE/LE's reveals WFL. [place]ot[place] to bilat L1- S1 reveals WFL Coordination Assessment Gross Coordination Gross Coordination WNL Assessment Finger to Nose Test Normal Performance Pronation/Supination Test Normal Performance Foot Tapping Test Normal Performance Heel on Ellis Test Normal Performance Sensation Assessment Sensation Gross Sensation WNL Comments Sensation Comments NO deficits noted in all sensory M6 PT-IP Treatment Start: 12/25/17 17:02 Freq: NEEDED Status: Active Protocol: Document 12/27/17 09:22 GGD (Rec: 12/27/17 09:26 GGD [id number]) Physical Therapy Treatment Education Education Provided Precautions Safety M7 PT-IP Assessment and Plan Start: 12/25/17 17:02 Freq: NEEDED Status: Active Protocol: Document 12/27/17 09:22 GGD (Rec: 12/27/17 09:26 GGD [id number]) PT Summary Assessment and Plan Summary Assessment Summary Pt improving with mobility. She was safe and stable with stairs. She needed cues for sit to stand. Treatment Plan Physical Therapy Treatment Plan Bed Mobility Training Transfer Training Gait Training Therapeutic Exercise Post Op Education Discharge Planning Other Recommendations and Next Treatment Bed mobility, transfer, Focus distance mobility, stairs Recommendations To Nursing Amount of Assist Needed Standby Assistance Discharge Recommendations PT Discharge Recommendations Home with Assistance
== END 2017-12-27 13:17 | disposition home or self-care (01) | DRG 455 ==
PROVIDERS: Admitting Provider Orthopaedic Surgery; PCP Family Medicine; Visit Provider Orthopaedic Surgery
PROC: 0SG00A0 Fusion of Lumbar Vertebral Joint with Interbody Fusion Device, Anterior Approach, Anterior Column, Open Approach (ICD-10-PCS; CPT 22558; principal; 2017-12-25 10:45)
DX: M48.062 Spinal stenosis, lumbar region with neurogenic claudication (principal); M43.16 Spondylolisthesis, lumbar region; I10 Essential (primary) hypertension; J45.909 Unspecified asthma, uncomplicated; M79.7 Fibromyalgia; M81.0 Age-related osteoporosis without current pathological fracture; Z87.891 Personal history of nicotine dependence
CPT/HCPCS: 36415; 72100; 76001; 80048; 85014; 85018; 94760; 97116; 97161; 97165; 97530; 97535; C1776; C1788; J0330; J0595; J0690; J1100; J1170; J2274; J2405; J2704; J2765; J3010